=== PATIENT | male | born 1935 | race Caucasian/White ===

== ENCOUNTER 2017-02-21 05:18 | Day surgery (SDC) | payer OTHER, BC ==
[~2017-02-21] VITALS: Ht 177.8 cm; Wt 97.7 kg
[~2017-02-21 05:18] MED LIST: ARICEPT10 MG PO; ASPIR 8181 M1 PO; CITRATE OF MAG296 ML PO; CO Q-10200 MG PO; DITROPAN XL10 MG PO; GREEN TEA-70500 MG PO; HYTRIN5 MG PO; MULTI-VITAMIN1 EAC4 PO; OMEGA 3 1,0001 EACH PO; PROCARDIA XL60 MG PO; PROSTATE SR SO1 EACH PO; RISPERDAL0.5 MG PO; SAW PALMETTO450 MG PO; TERAZOSIN HCL5 MG; ZESTRIL10 MG PO; ZOLOFT50 MG PO; [UNRECOGNIZED DRUG - OTHER] PO
[2017-02-21 05:57] VITALS: BP 128/82
[2017-02-21 16:27] VITALS: BP 107/78
[2017-02-21 19:46] VITALS: BP 140/75
[2017-02-22 00:18] VITALS: BP 141/78
[2017-02-22 04:28] VITALS: BP 139/72
[2017-02-22 07:34] VITALS: BP 144/80
[2017-02-22 11:14] VITALS: BP 134/72
[2017-02-22] MEDS ORDERED: DURICEF500 MG PO (12:33)
[2017-02-22] MEDS ORDERED: NORCO 5/3251 TABLET PO (12:35)
== END 2017-02-22 13:30 | disposition home or self-care (01) ==
LOC: SDC 05:18 → 2SOUTH 09:00 → SDC 09:02 → ENRESERV 09:10 → 5EAST 10:21 → SDC 12:04 → ENPENDDIS 02-22 → 5EAST 02-22 13:30
PROC: 0VBS0ZZ Excision of Penis, Open Approach (ICD-10-PCS; principal; 2017-02-21)
DX: C60.2 Malignant neoplasm of body of penis (principal); G30.9 Alzheimer's disease, unspecified; F02.80 Dementia in other diseases classified elsewhere, unspecified severity, without behavioral disturbance, psychotic disturbance, mood disturbance, and anxiety; I12.9 Hypertensive chronic kidney disease with stage 1 through stage 4 chronic kidney disease, or unspecified chronic kidney disease; N18.9 Chronic kidney disease, unspecified; N40.0 Benign prostatic hyperplasia without lower urinary tract symptoms; Z79.82 Long term (current) use of aspirin; Z85.820 Personal history of malignant melanoma of skin; Z96.653 Presence of artificial knee joint, bilateral
CPT/HCPCS: G0378; J0690; J2405; J3010; J7050; J7120

== ENCOUNTER → 2017-10-16 | Outpatient (CLI) | payer OTHER, BC ==
[~2017-10-16] MED LIST changes: +DURICEF500 MG PO; +NORCO 5/3251 TABLET PO
== END | disposition home or self-care (01) ==
DX: R13.12 Dysphagia, oropharyngeal phase (principal)
CPT/HCPCS: 92611 GN; G8996 GN; G8997 GN; G8998 GN